=== PATIENT | male | born 1985 | race Caucasian/White ===

== ENCOUNTER → 2021-01-21 10:28 | Outpatient (BNVA) | payer BC, SELFPAY | PROVIDERS: Family Provider Family Medicine; PCP Family Medicine; Visit Provider Nurse Practitioner Family | DX: Z11.52 Encounter for screening for COVID-19 (principal); Z20.822 Contact with and (suspected) exposure to COVID-19; J06.9 Acute upper respiratory infection, unspecified | CPT/HCPCS: 87635 ==

== ENCOUNTER 2022-10-24 13:57 | Emergency (ER) | payer OTHER, SELFPAY ==
[2022-10-24 14:07] VITALS: BP 135/79; PULSE 67; RESP 16; TEMP 36.8; O2SAT 98
--- NOTE | 2022-10-24 14:58 | US_ITS ---
WS: [id number] SCROTAL ULTRASOUND EXAMINATION CLINICAL INFORMATION: testicle pain, no swelling COMPARISON: None. FINDINGS: TESTES Normal in size and echotexture, without focal lesion. Color Doppler: Normal color Doppler flow pattern. Right testes size: 4.2 cm x 3.2 cm x 2.4 cm. Left testes size: 4.3 cm x 3.2 cm x 2.3 cm. EPIDIDYMIDES Normal in size and echotexture, without focal lesion. Color Doppler: Normal color Doppler flow pattern. Right epididymis size: 1.3 cm x 1.1 cm x 1.4 cm. Left epididymitis size: 0.7 cm x 0.9 cm x 1.1 cm. HYDROCELE None. VARICOCELE None. OTHER FINDINGS None. US/US scrotum [id number] IMPRESSION: Normal scrotal ultrasound
[2022-10-24 15:11] VITALS: BP 147/70; PULSE 82; O2SAT 97
--- NOTE | 2022-10-24 15:20 | W.ED.MALEGU ---
HPI - Male Genitourinary General: Chief complaint: Urogenital-Male Stated complaint: groin pain Time Seen by Provider: 10/24/22 14:58 History of Present Illness: Patient is a 37-year-old male comes to the ED with testicle pain. Symptoms started yesterday. He is complaining of having bilateral testicular pain that he rates a 5 out of 10. He says pain is constant aching pain. Applying any pressure on testicles actually improves pain. Pain occasionally radiates up into his lower abdomen bilaterally. Denies any testicular swelling. Endorses some mild nausea. Denies any fevers, chills, abdominal pain, vomiting, dysuria, hematuria, genital lesions or penile discharge. Patient is sexually active with his but denies any history of STDs. Associated symptoms: Reports nausea; Deny dysuria, hematuria or vomiting Review of Systems Const: Denies: fever(s), chills or fatigue Eyes: Denies: change in vision or eye discomfort ENMT: Denies: throat pain, odynophagia, nasal discharge or nasal congestion Card: Denies: chest pain, palpitations, edema, swelling of feet/ankles, dyspnea on exertion or orthopnea Resp: Denies: dyspnea, productive cough or non-productive cough GI: Reports: nausea; Denies: abdominal pain, vomiting, diarrhea, constipation or hematochezia : Reports: testicular pain; Denies: flank pain, difficulty urinating, dysuria, hematuria, genital lesions, penile discharge, testicular mass or scrotal swelling Musc: Denies: neck pain, back pain or extremity swelling Skin/Breast: Denies: rash or new lesions Neuro: Denies: headache(s), numbness in extremities or weakness in extremities PFSH ED PFSH: Medical History No pertinent family history Surgical History No pertinent past surgical history Physical Exam Const: COMMON NORMALS: no acute distress, patient oriented x3 and alert GENERAL APPEARANCE: cooperative HENMT: COMMON NORMALS: normocephalic HEAD & SCALP: normocephalic MOUTH: Normal oral and palatal mucosa present THROAT: posterior oropharynx normal and uvula midline Neck/C-Spine: COMMON NORMALS: supple GENERAL: Yes normal visual inspection Resp: COMMON NORMALS: normal respiratory effort, No retractions, No use of accessory muscles and clear to auscultation bilaterally AUSCULTATION: clear to auscultation bilaterally Cardio: COMMON NORMALS: regular rate, regular rhythm, S1 normal heart sound present, S2 normal heart sound present, No gallops present (Cardio), No clicks present (Cardio), No murmurs present (Cardio) and Peripheral pulses 2+ throughout RATE: regular rate RHYTHM: regular rhythm HEART SOUNDS: S1 normal heart sound present and S2 normal heart sound present PERIPHERAL PULSES: Peripheral pulses 2+ throughout GI: COMMON NORMALS: Normal to inspection, nondistended, normoactive bowel sounds present, Soft to palpation, non-tender and no masses PALPATION: Yes Soft to palpation : COMMON NORMALS: Yes no CVA tenderness BLADDER/KIDNEY EXAM: Yes no CVA tenderness TESTES: Yes testicular lie normal, No testicular swelling and Yes testicular tenderness Testicular tenderness laterality: bilateral Back/Pelvis: COMMON NORMALS: no CVA tenderness Extremity: COMMON NORMALS: normal to inspection Neuro: COMMON NORMALS: patient oriented x3 SENSORIUM/ORIENTATION: Yes alert GAIT: Yes Normal gait present Skin: GENERAL SKIN EXAM: dry skin Course Vital Signs: Vital signs: Vital Signs Temperature 98.2 F 10/24/22 14:07 Pulse Rate 82 10/24/22 15:11 Respiratory Rate 16 10/24/22 14:07 Blood Pressure 147/70 10/24/22 15:11 Pulse Oximetry 97 10/24/22 15:11 Oxygen Delivery Me thod Room Air 10/24/22 15:11 [facility] - Male Medical Decision Making Patient is a 37-year-old male comes to the ED with testicle pain. Symptoms started yesterday. He is complaining of having bilateral testicular pain that he rates a 5 out of 10. He says pain is constant aching pain. Applying any pressure on testicles actually improves pain. Pain occasionally radiates up into his lower abdomen bilaterally. Denies any testicular swelling. Endorses some mild nausea. Denies any fevers, chills, abdominal pain, vomiting, dysuria, hematuria, genital lesions or penile discharge. Patient is sexually active with his but denies any history of STDs. Vitals stable. Patient appears nontoxic in no acute distress or pain. He has testicular tenderness bilaterally but no testicular swelling or mass noted. Rest of exam is benign. Ultrasound of scrotum shows no acute findings. Urinalysis is unremarkable. Patient was diagnosed with testicular pain and discharged home with levofloxacin to cover any potential epididymitis told to follow-up with his PCP in the next week for reevaluation. Return to ED precautions given. Patient understood and agreed with plan. Lab Data I reviewed the patient's lab results. Radiology Impressions Scrotum Ultrasound 10/24/22 14:58 IMPRESSION: Normal scrotal ultrasound Laboratory Results Urine Color Yellow (Yellow) 10/24/22 16:57 Urine Appearance Clear (CLEAR) 10/24/22 16:57 Urine pH 5 (5-7) 10/24/22 16:57 Ur Specific [place] 1.025 (1.005-1.030) 10/24/22 16:57 Urine Protein Neg (Negative) 10/24/22 16:57 Urine Glucose (UA) Norm (Normal) 10/24/22 16:57 Urine Ketones Negative (Negative) 10/24/22 16:57 Urine Blood Neg (Negative) 10/24/22 16:57 Urine Nitrate Negative (Negative) 10/24/22 16:57 Urine Bilirubin 2+ (Negative) H 10/24/22 16:57 Urine Urobilinogen 1 mg/dL (Negative) H 10/24/22 16:57 Ur Leukocyte Esterase Negative (Negative) 10/24/22 16:57 Discharge Plan Discharge Patient Disposition: Home Clinical Impression: Testicle pain Qualifiers: Laterality: bilateral Qualified Code(s): N50.811 - Right testicular pain Condition: Stable Prescriptions: New levofloxacin 500 mg tablet 500 mg PO DAILY 10 Days Qty: 10 0RF No Action Aleve 220 mg Capsule 440 mg PO Q12H PRN (Reason: Pain) Discharge Orders: Discharge ED (Routine); Ordered 10/24/22 Ordered By: Ronan Young Referrals: Te Panchal MD [Primary Care Provider] - Discharge Diet: Regular Discharge Activity: Resume usual activity Patient Instructions: Testicle Pain (ED) Activity Restrictions/Additional Instructions: Follow-up with medical provider as directed in the next 5 to 7 days for reevaluation. Take medications as prescribed. Take [id number] Tylenol, ibuprofen or Aleve to help with pain. Return to the ER or your medical provider if condition worsens. Please read and understand discharge instructions. Thank you for choosing [facility] for your healthcare needs today. Please realize this is an emergency room and that we are providing you with a medical screening exam and this may not be complete and all inclusive of all the testing and or work up that you may need to determine your ailment or severity of your illness. It is very important that you follow up as instructed or that you return to the Emergency Department should you have concerns or if your condition changes or worsens in any way. Coding Level of Care Code ED Outbound Sales Executive for Samuel Pena
[2022-10-24 17:07] LABS: Add Urine Microscopic? NO; Charge for UA Resulting for Rev
[2022-10-24 17:25] LABS: Bilirubin Urine 2+ (Negative); Blood Urine Neg (Negative); Glucose Urine UA Norm (Normal); Ketones Urine Negative (Negative); Leukocyte Esterase Urine Negative (Negative); Nitrate Urine Negative (Negative); Protein Urine Neg (Negative); Specific Gravity, Urine 1.025 (1.005-1.030); Urine Appearance Clear (CLEAR); Urine Color Yellow (Yellow); Urobilinogen Urine 1 mg/dL (Negative); pH Urine 5 (5-7)
== END 2022-10-24 17:53 | disposition home or self-care (01) ==
PROVIDERS: Emergency Provider Physician Assistant; PCP Family Medicine
DX: N50.811 Right testicular pain (principal)
CPT/HCPCS: 76870; 81003; 99284

== ENCOUNTER 2023-02-06 03:07 | Emergency (ER) | payer OTHER, SELFPAY ==
[2023-02-06 03:09] VITALS: BP 187/105; PULSE 67; RESP 18; TEMP 37.1; O2SAT 98; BMI 41.8
--- NOTE | 2023-02-06 03:16 | ED_ITS ---
HPI - Dental/Oral General: Chief complaint: Dental/Oral Stated complaint: Mouth Swollen\Pain Time Seen by Provider: 02/06/23 03:08 Source: patient Mode of arrival: ambulatory Limitations: no limitations History of Present Illness: 37-year-old male states he did have a dental pain throughout the day right upper molar states pain sharp in nature rates it a 6 out of 10 he has no difficulty swallowing. Denies any fevers denies any worsening proving factors. Associated symptoms: Denies fever(s) Review of Systems Const: Denies: fever(s), chills, body aches or change in appetite ENMT: Reports: dental pain; Denies: throat pain Card: Denies: chest pain Resp: Denies: dyspnea GI: Denies: abdominal pain, nausea, vomiting or diarrhea : Denies: dysuria Musc: Denies: neck pain or back pain Skin/Breast: Denies: rash Neuro: Denies: headache(s) PFS ED PFSH: Medical History No pertinent family history Surgical History No pertinent past surgical history Physical Exam Const: COMMON NORMALS: no acute distress, patient oriented x3 and healthy appearing HENMT: COMMON NORMALS: normocephalic and atraumatic HEAD & SCALP: normocephalic and atraumatic OTHER: Tenderness of her right upper molar some erythema no abscess or trismus Neck/C-Spine: COMMON NORMALS: full ROM and supple Chest: COMMONS NORMALS: normal inspection of the chest and normal palpation of entire chest wall Resp: COMMON NORMALS: normal respiratory effort, No retractions, No use of accessory muscles and clear to auscultation bilaterally AUSCULTATION: clear to auscultation bilaterally Cardio: COMMON NORMALS: regular rate, regular rhythm and No murmurs present (Cardio) RATE: regular rate RHYTHM: regular rhythm GI: COMMON NORMALS: Normal to inspection, nondistended, normoactive bowel sounds present, Soft to palpation, non-tender and no masses PALPATION: Yes Soft to palpation Extremity: COMMON NORMALS: normal to inspection and full ROM Neuro: COMMON NORMALS: patient oriented x3, moves all extremities and no focal motor deficits Psych: COMMON NORMALS: mental status grossly normal, Normal thought process present and cooperative THOUGHT PROCESS: Normal thought process present Skin: COMMON NORMALS: no rashes or lesions noted and no wounds GENERAL SKIN EXAM: no rashes or lesions noted Course Vital Signs: Vital signs: Vital Signs Temperature 98.8 F 02/06/23 03:09 Pulse Rate 67 02/06/23 03:09 Respiratory Rate 18 02/06/23 03:09 Blood Pressure 187/105 02/06/23 03:09 Pulse Oximetry 98 02/06/23 03:09 Oxygen Delivery Me thod Room Air 02/06/23 03:09 MDM - Dental/Oral Medical Decision Making Patient presented dental pain no abscess no trismus we will start him on antibiotics he is to follow-up with a dentist. Discharge Plan Discharge Patient Disposition: Home Clinical Impression: Toothache Condition: Stable Prescriptions: New cephalexin 500 mg capsule 500 mg PO TID 7 Days Qty: 21 0RF No Action Aleve 220 mg Capsule 440 mg PO Q12H PRN (Reason: Pain) Discharge Orders: Discharge ED (Routine); Ordered 02/06/23 Ordered By: Noreen Guido Discharge Diet: Advance as tolerated Discharge Activity: Resume usual activity Patient Instructions: Toothache (ED) Coding Level of Care Code ED Home Health Travel Pt for Samuel Pena
[2023-02-06] MEDS: HYDROcodone-acetaminophen 5-325 mg Tablet 1 TAB PO (03:23)
[2023-02-06] MEDS: cephALEXin 500 mg Capsule PO (03:23)
[2023-02-06 04:00] VITALS: BP 160/100; PULSE 70; RESP 18; O2SAT 96
--- NOTE | 2023-02-07 14:35 | DCPLANNER ---
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
== END 2023-02-06 04:01 | disposition home or self-care (01) ==
PROVIDERS: Emergency Provider Emergency Medicine
DX: K08.89 Other specified disorders of teeth and supporting structures (principal)
CPT/HCPCS: 99283

== ENCOUNTER 2023-08-27 21:38 | Emergency (ER) | payer OTHER, SELFPAY ==
[2023-08-27 21:41] VITALS: BP 192/112; PULSE 56; RESP 16; TEMP 36.7; O2SAT 99; BMI 40.0
[2023-08-27 21:54] LABS: Glucose Point of Care 86 mg/dL (70-110)
--- NOTE | 2023-08-27 21:58 | CTR_ITS ---
PROCEDURE INFORMATION: Exam: CT Head Without Contrast Exam date and time: 08/27/2023 10:25 PM Age: 38 years old Clinical indication: Numbness / parasthesia; Right; Additional info: Headache and right side numb TECHNIQUE: Imaging protocol: Computed tomography of the head without contrast. Radiation optimization: All CT scans at this facility use at least one of these dose optimization techniques: automated exposure control; mA and/or kV adjustment per patient size (includes targeted exams where dose is matched to clinical indication); or iterative reconstruction. COMPARISON: CT head wo con* [id number] 12/14/2017 1:33 PM RADIATION DOSE METRICS: Total DLP (mGy-cm): 1152.78 FINDINGS: Brain: Normal. No hemorrhage. Unremarkable white matter. No mass effect. Cerebral ventricles: No ventriculomegaly. Paranasal sinuses: Visualized sinuses are unremarkable. No fluid levels. Mastoid air cells: Visualized mastoid air cells are well aerated. Bones/joints: Unremarkable. No acute fracture. Soft tissues: Unremarkable. CT/CT head wo con* [id number] IMPRESSION: No acute intracranial abnormality.
--- NOTE | 2023-08-27 21:59 | ED_ITS ---
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 He states he is recently started working nights and normally works days and became concerned and drove himself home and called his and they came to the emergency department to be evaluated. Upon arrival he states he does have a generalized headache that is a throbbing headache. He denies nausea vomiting dizziness or lightheaded feeling. Review of Systems 2 General: Reports: 10 or more systems reviewed and unremarkable except in HPI and below ENMT: Reports: ear or mastoid pain Neuro: Reports: headache(s) [facility] ED 2 PFSH: Medical History No pertinent family history Surgical History No pertinent past surgical history Physical Exam 2 Narrative: Constitutional: the patient appears well nourished and with normal development. Vital signs reviewed as documented. HENMT: Normocephalic, atraumatic. External ears normal appearance without drainage. Nose without drainage, normal appearance. Mucus membranes moist. Neck is supple, No jugular venous distension, trachea is midline, no appreciable carotid bruits. No lymphadenopathy. No meningeal signs. Flexion, extension and lateral rotation is without pain. Eyes: Pupils are equal, round, reactive to light and accommodation. No scleral icterus. Extra-ocular movement are intact. Thorax is symmetrical and with equal rise and fall with respirations. Resp: Lungs are clear to auscultation. No wheezes, rales, crackles or ronchi at present. Cardio: Regular rate and rhythm. Positive S1, S2. No appreciable murmurs, rubs or gallops. GI: Abdominal exam reveals normal bowel sounds to all quadrants. No organomegaly. No obvious palpable masses noted. Soft, non-tender to palpation. Extremity: Extremities are non-edematous and both femoral and pedal pulses are 2+ and equal bilaterally. Moves all extremities well, sensation in all extremities. Neuro: Alert and oriented x4, person, place, time and situation. Cranial nerves II through XII are grossly intact, there is no focal neurological deficits that I can appreciate at present. Motor strength in the upper and lower extremities are equal and bilateral 5/5. Psych: Cooperative, calm, normal thought process, appropriate judgment. Skin: No lesions, rashes. No gross abnormalities noted. Back: Symmetrical, no obvious deformity, No CVA tenderness Course 2 Vital Signs: Vital signs: Vital Signs Temperature 98.1 F 08/27/23 21:41 Pulse Rate 56 L 08/28/23 02:21 Respiratory Rate 16 08/28/23 02:21 Blood Pressure 149/77 08/28/23 02:21 Pulse Oximetry 95 08/28/23 02:21 Oxygen Delivery Me thod Room Air 08/27/23 23:33 MDM - Altered Mental Status Medical Decision Making Physical exam completed and documented, I will obtain POC glucose check and treat accordingly. I will a CT scan of the head without contrast to evaluate for intracranial hemorrhage and if indicated a CTA scan of the head and neck for evaluation of acute ischemic vessel occlusion. I have reviewed previous and pertinent medical records for assist in obtaining beneficial medical information to improved the care and treatment of the patient. Medical Records I reviewed the patient's medical records. Lab Data I reviewed the patient's lab results. 08/27/23 21:50 08/27/23 21:[address] 08/27/23 21:58 IMPRESSION: No acute intracranial abnormality. Laboratory Results WBC 9.80 10^3/uL (3.29-11.43) 08/27/23 21:50 RBC 5.56 10^6/uL (3.85-5.65) 08/27/23 21:50 Hgb 15.90 g/dL (11.27-16.99) 08/27/23 21:50 Hct 48.3 % (37-53) 08/27/23 21:50 MCV 86.9 fl (82-101) 08/27/23 21:50 MCH 28.6 pg (27-33) 08/27/23 21:50 MCHC 32.9 g/dL (30-55) 08/27/23 21:50 RDW 12.5 % (12.1-15.1) 08/27/23 21:50 Plt Count 231 10^3/cmm (157-399) 08/27/23 21:50 MPV 11.3 fL (7.4-10.4) H 08/27/23 21:50 Neut % (Auto) 62.7 % 08/27/23 21:50 Lymph % (Auto) 26.1 % 08/27/23 21:50 [place] % (Auto) 6.0 % 08/27/23 21:50 Eos % (Auto) 4.2 % 08/27/23 21:50 Baso % (Auto) 0.8 % 08/27/23 21:50 Neut # (Auto) 6.14 10^3/uL (1.8-7.7) 08/27/23 21:50 Lymph # (Auto) 2.6 10^3/uL (0.8-4.8) 08/27/23 21:50 [place] # (Auto) 0.6 10^3/uL (0.2-0.9) 08/27/23 21:50 Eos # (Auto) 0.4 10^3/uL (0.0-0.8) 08/27/23 21:50 Baso # (Auto) 0.1 10^3/uL (0.0-0.1) 08/27/23 21:50 Nucleated RBC % (auto) 0 % 08/27/23 21:50 Nucleated RBCs # 0.0 /100WBC 08/27/23 21:50 Sodium 137 mmol/L (136-145) 08/27/23 21:50 Potassium 3.8 mmol/L (3.5-5.1) 08/27/23 21:50 Chloride 99 mmol/L (98-107) 08/27/23 21:50 Carbon Dioxide 28 mmol/L (22-29) 08/27/23 21:50 Anion Gap 13.8 (5-19) 08/27/23 21:50 BUN 15 mg/dL (6-20) 08/27/23 21:50 Creatinine 1.0 mg/dL (0.7-1.2) 08/27/23 21:50 GFR Calculation 83.6 mL/min (90-130) L 08/27/23 21:50 Glucose 92 mg/dL (65-115) 08/27/23 21:50 POC Glucose 86 mg/dL (70-110) 08/27/23 21:51 Calculated Osmolality 284 mOsm/kg (285-295) L 08/27/23 21:50 Calcium 9.3 mg/dL (8.5-10.5) 08/27/23 21:50 Total Bilirubin 0.4 mg/dL (0.15-1.2) 08/27/23 21:50 AST 22 U/L (0-40) 08/27/23 21:50 ALT 20 U/L (0-41) 08/27/23 21:50 Alkaline Phosphatase 65 U/L (40-130) 08/27/23 21:50 Total Protein 8.2 g/dL (6.6-8.7) 08/27/23 21:50 Albumin 4.8 g/dL (3.5-5.2) 08/27/23 21:50 Globulin 3.4 g/dL (1.3-4.6) 08/27/23 21:50 Urine Color Yellow (Yellow) 08/27/23 22:12 Urine Appearance Clear (CLEAR) 08/27/23 22:12 Urine pH 5 (5-7) 08/27/23 22:12 Ur Specific [place] 1.025 (1.005-1.030) 08/27/23 22:12 Urine Protein Trace (Negative) 08/27/23 22:12 Urine Glucose (UA) Norm (Normal) 08/27/23 22:12 Urine Ketones Negative (Negative) 08/27/23 22:12 Urine Blood Neg (Negative) 08/27/23 22:12 Urine Nitrate Negative (Negative) 08/27/23 22:12 Urine Bilirubin Neg (Negative) 08/27/23 22:12 Urine Urobilinogen Neg mg/dL (Negative) 08/27/23 22:12 Ur Leukocyte Esterase Negative (Negative) 08/27/23 22:12 Urine RBC None /hpf (0-2) 08/27/23 22:12 Urine WBC None /hpf (0-5) 08/27/23 22:12 Ur Squamous Epith Cells None /hpf (0-5) 08/27/23 22:12 Amorphous Sediment Not Reportable 08/27/23 22:12 Urine Bacteria Trace /hpf (NONE) 02/12/24 22:12 Urine Mucus 2+ /hpf 08/27/23 22:12 Urine Opiates Screen Negative ng/mL (Negative) 08/27/23 22:12 Ur Barbiturates Screen Negative ng/mL (Negative) 08/27/23 22:12 Ur Phencyclidine Scrn Negative ng/mL (Negative) 08/27/23 22:12 Ur Amphetamines Screen Negative ng/mL (Negative) 08/27/23 22:12 U Benzodiazepines Scrn Negative ng/mL (Negative) 08/27/23 22:12 Urine Cocaine Screen Negative ng/mL (Negative) 08/27/23 22:12 U Marijuana (THC) Screen Negative ng/mL (Negative) 08/27/23 22:12 All radiology interpretation(s) finalized by discharge Discharge Plan Discharge Patient Disposition: Home Clinical Impression: Vasovagal near-syncope Condition: Stable Prescriptions: No Action Aleve 220 mg Capsule 440 mg PO Q12H PRN (Reason: Pain) Discharge Orders: Discharge ED (Routine); Ordered 08/28/23 Ordered By: Irving Ferrera Referrals: Te Panchal MD [Primary Care Provider] - Discharge Diet: Low Salt Discharge Activity: Resume usual activity Patient Instructions: Altered Mental Status (ED), Opioid Safety, Pain Management Activity Restrictions/Additional Instructions: Activity Restrictions/Additional Instructions: Thank you for choosing [facility] for your healthcare needs today. Please realize that you were seen in the Emergency Department and that we are providing you with an emergency medical screening exam and this may not be a complete and all inclusive of all the testing and or medical work-up that you may need to determine your ailment or severity of your illness. It is very important that you follow-up as instructed with your Primary care provider or Specialist for additional evaluation and to discuss your medical treatment plan. Coding Level of Care Code ED Hop Worker for Samuel Pena
[2023-08-27 22:04] LABS: Basophils # 0.1 10^3/uL (0.0-0.1); Basophils % 0.8 %; Eosinophils # 0.4 10^3/uL (0.0-0.8); Eosinophils % 4.2 %; Hematocrit 48.3 % (37-53); Lymphocytes # 2.6 10^3/uL (0.8-4.8); Lymphocytes % 26.1 %; Mean Corpuscular HGB Conc 32.9 g/dL (30-55); Mean Corpuscular Hemoglobin 28.6 pg (27-33); Mean Corpuscular Volume 86.9 fl (82-101); Mean Platelet Volume 11.3 fL (7.4-10.4); Monocytes # 0.6 10^3/uL (0.2-0.9); Neutrophils # 6.14 10^3/uL (1.8-7.7); Neutrophils % 62.7 %; Nucleated Red Blood Cells % 0 %; Platelet Count 231 10^3/cmm (157-399); Red Blood Count 5.56 10^6/uL (3.85-5.65); Red Cell Distribution Width 12.5 % (12.1-15.1)
[2023-08-27 22:17] LABS: Alanine Aminotransferase 20 U/L (0-41); Albumin Level 4.8 g/dL (3.5-5.2); Alkaline Phosphatase 65 U/L (40-130); Anion Gap 13.8 (5-19); Blood Urea Nitrogen 15 mg/dL (6-20); Calcium 9.3 mg/dL (8.5-10.5); Carbon Dioxide 28 mmol/L (22-29); Chloride 99 mmol/L (98-107); Globulin 3.4 g/dL (1.3-4.6); Glomerular Filtration Rate 83.6 mL/min (90-130); Glucose 92 mg/dL (65-115); Osmolality Calculated 284 mOsm/kg (285-295); Potassium 3.8 mmol/L (3.5-5.1); Sodium 137 mmol/L (136-145); Total Bilirubin 0.4 mg/dL (0.15-1.2); Total Protein 8.2 g/dL (6.6-8.7)
[2023-08-27 22:26] LABS: Aspartate Amino Transferase 22 U/L (0-40)
[2023-08-27 22:34] LABS: Add Urine Culture? No; Add Urine Microscopic? YES; Bacteria Urine TRACE /hpf; Bilirubin Urine Neg (Negative); Blood Urine Neg (Negative); Glucose Urine UA Norm (Normal); Ketones Urine Negative (Negative); Leukocyte Esterase Urine Negative (Negative); Mucus Urine 2+ /hpf; Nitrate Urine Negative (Negative); Protein Urine Trace (Negative); Specific Gravity, Urine 1.025 (1.005-1.030); Urine Appearance Clear (CLEAR); Urine Color Yellow (Yellow); Urobilinogen Urine Neg (Negative); pH Urine 5 (5-7)
[2023-08-27 22:38] LABS: Amphetamines Screen Urine Negative (Negative); Barbiturates Screen Urine Negative (Negative); Benzodiazepines Screen Urine Negative (Negative); Cocaine Screen Urine Negative (Negative); PCP Screen Urine Negative (Negative); THC Screen Urine Negative (Negative)
[2023-08-27 22:49] LABS: Opiate Screen Urine Negative (Negative)
[2023-08-27 23:08] VITALS: BP 167/108; PULSE 53; O2SAT 96
[2023-08-27 23:33] VITALS: BP 167/106; PULSE 50; RESP 17; O2SAT 99
[2023-08-28] VITALS: BP 164/87; PULSE 51; RESP 14; O2SAT 96
[2023-08-28 00:30] VITALS: BP 162/76; PULSE 46; O2SAT 96
[2023-08-28 01:00] VITALS: BP 155/92; PULSE 62; O2SAT 98
[2023-08-28] MEDS: acetaminophen 500 mg Tablet 1000 MG PO (01:34)
[2023-08-28 02:21] VITALS: BP 149/77; PULSE 56; RESP 16; O2SAT 95
== END 2023-08-28 02:23 | disposition home or self-care (01) ==
PROVIDERS: Emergency Provider Internal Medicine; PCP Family Medicine
DX: R55 Syncope and collapse (principal)
CPT/HCPCS: 36416; 70450; 80053; 80306; 81001; 82962; 85025; 99284

== ENCOUNTER → 2024-01-01 06:51 | Outpatient (BNVA) | payer OTHER, SELFPAY | PROVIDERS: PCP Family Medicine; Referring Provider Family Medicine; Visit Provider Student in an Organized Health Care Education/Training Program | DX: G56.03 Carpal tunnel syndrome, bilateral upper limbs (principal) | CPT/HCPCS: 73110 ==

== ENCOUNTER 2024-01-24 08:29 | Day surgery (SDC) | payer OTHER, SELFPAY ==
[2024-01-24] VITALS (11 sets, daily range): BP systolic 119–159; BP diastolic 44–90; PULSE 50–70; RESP 12–18; TEMP 36.4–37.1; O2SAT 94–99; BMI 42.5
[2024-01-24] MEDS: ketorolac 30 mg/mL INJ IVP (09:02)
[2024-01-24] MEDS: sodium chloride 0.9% 1,000 ML 30 ML IV (09:02)
[2024-01-24] MEDS: scopolamine 1.5 Patch 1 PATCH TRANSDERMA (09:02)
[2024-01-24] MEDS: acetaminophen 1,000 MG/100 ML PIGGYBACK 400 MG IV (09:02)
--- NOTE | 2024-01-24 09:54 | ANES.PREANE2 ---
Pre-Anesthetic Assessment Height/Weight: Height 1.8 m Weight 138.346 kg Temp Pulse Resp BP Pulse Ox O2 Del Method 98.2 F 67 18 146/90 98 Room Air 01/24/24 08:46 01/24/24 08:46 01/24/24 08:46 01/24/24 08:46 01/24/24 08:46 01/24/24 08:48 Operation Date: 01/24/24 10:10 Proposed Procedures p Carpal Tunnel Release(Right) - Cristian Gila, Last intake: Intake Last Liquid Date 01/23/24 Last Liquid Time 22:00 Last Solid Date 01/23/24 Last Solid Time 22:00 Social No tobacco Exam alert, oriented x 3, clear to auscultation bilaterally and regular rate & rhythm Airway Submandibular: within normal limits Cervical ROM: within normal limits Mallampati: Class I Pulmonary None reported CV/HEM Hypertension None reported Hepatic None reported GI None reported Metabolic Morbid Obesity and None reported Musc/skel None reported Neuropsych Seizure none x 7 years Anesthetic Plan ASA status: 3 Anesthesia: MAC Risk of > 500 ml blood loss (7ml/kg in children): No Medications/Allergies Home Medications Medication Instructions Recorded Confirmed Last Taken Type hydrochlorothiazide 25 mg tablet 25 mg PO DAILY #30 tabs 08/29/23 01/24/24 11/13/23 Rx trazodone 100 mg tablet 100 mg PO .QHS #30 tabs 08/29/23 01/24/24 01/10/23 Rx Allergies Allergy/AdvReac Type Severity Reaction Status Date / Time Sulfa (Sulfonamide Allergy unknown Verified 01/23/24 11:07 Antibiotics) Current Medications Generic Name Dose Route Start Last Admin Trade Name Freq PRN Reason Stop Dose Admin Sodium Chloride 1,000 mls @ 30 mls/hr 01/24/24 08:45 01/24/24 09:02 Sodium Chloride 0.9% IV 01/25/24 08:44 30 mls/hr .Q24H NATALIE Administration PFSH Anesthesia Medical History Hypertension Insomnia No pertinent family history Surgical History No pertinent past surgical history Social History (Updated 01/01/24 @ 07:02 by Loyda Kapadia LPN) Smoking and tobacco/nicotine status: never used tobacco/nicotine Alcohol intake: current Alcohol intake frequency: few times a month Data Anesthesia Cardiac Studies: No Data to Display
--- NOTE | 2024-01-24 09:57 | W.PM.OPSUD ---
Surgery/Procedure H&P Update DATE OF PROCEDURE: January 24, 2024 DATE H&P PERFORMED: 12/31/23 H&P UPDATE INFORMATION: I have reviewed H&P completed within last 30 days, I have examined patient prior to procedure and No changes to prior documentation PREOP DIAGNOSIS: Right carpal tunnel syndrome PRIMARY INDICATION FOR PROCEDURE: Right carpal tunnel syndrome PLANNED PROCEDURE: Operation Date: 01/24/24 10:10 Proposed Procedures p Carpal Tunnel Release(Right) - Cristian Young DO
[2024-01-24] MEDS: ceFAZolin 3,000 MG in sodium chloride 0.9% (plus) 100 ML 200 MG IV (10:11)
[2024-01-24] MEDS: ROPivacaine 0.5% SDV 30 mL 150 MG INJECTION (10:37)
[2024-01-24] MEDS: lidocaine-epi 1% 20 mL INJ INJECTION (10:37)
--- NOTE | 2024-01-24 10:52 | P.BOP_ITS ---
Date of Procedure: 01/24/2024 Surgeon: Cristian Young DO [employer] Manager(s): None Procedure(s) performed: Right carpal tunnel release Findings of the procedure(s): Patient found to have right carpal tunnel syndrome underwent procedure as planned without issues or complications Estimated blood loss: 1 mL Specimen(s) removed: None Post-operative diagnosis: Right carpal tunnel syndrome
--- NOTE | 2024-01-24 10:52 | P.OP_ITS ---
Operative Report Date of procedure: January 24, 2024 Surgeon: Cristian Young DO Procedure: PreopDx Right carpal tunnel syndrome: Post-op diagnosis: Same Procedure done: 1.?Right carpal tunnel?release Surgeon: Cristian Young DO Anesthesia: MAC (Local) Estimated blood loss: [1?]mL Tourniquet time [ 7]minutes IV fluids: See anesthesia?record Complications: None Findings: See operative?report narrative Condition: stable Disposition: same day Brief History: Patient is a pleasant [?38 ]year-old [Male ] with?right carpal tunnel syndrome.? Patient has been worked up in the outpatient setting findings and physical examination consistent with this.? Patient nerve conduction studies consistent with carpal tunnel syndrome.? We detailed out patient's?risk benefits complication alternatives with surgical and nonsurgical treatment options. Through shared decision making, patient agrees to proceed with surgical intervention of the right carpal tunnel?release .? Patient understands and agrees with current plan.? All questions answered.? Patient elects to proceed with surgical intervention. Procedure: Patient seen and evaluated in the preoperative holding area.? Consent was?reviewed and signed with patient.? Correct extremity was marked.? Patient was seen evaluated by the anesthesia department once cleared for surgery was brought back to the operative suite.? Patient was kept on [facility] in supine position all bony prominences were well-padded patient properly secured to the bed.??Right upper extremity was then placed onto an armboard.? A nonsterile tourniquet was applied to the?RIght upper arm.? Patient underwent anesthesia per the anesthesia department.? Patient's?Right upper extremity was then prepped and draped in standard orthopedic fashion.? Final timeout performed.? Patient?received appropriate preoperative antibiotics. Under sterile aseptic technique patient?received local anesthesia over the preplanned carpal tunnel incision site. Esmarch was used to exsanguinate the?Right upper extremity and tourniquet was insufflated to 250 mmHg. A standard mini open?Right carpal tunnel incision was made.? Starting distally at Dwyer's cardinal line in line with the fourth?ray extending proximally distal to the wrist crease centered over the carpal tunnel.? Sharp scalpel incision was made through skin and subcutaneous tissue.? Self- retaining?retractor was placed and the palmar fascia was identified.? This was then split longitudinally and direct visualization of the transverse carpal ligament was then made.? I then utilizing scalpel feathered through the transverse carpal ligament until I entered the floor of the transverse carpal tunnel ligament into the carpal tunnel.? Next I switched to dissection scissors and completed my?release of the transverse carpal ligament distally with care to protect the?recurrent motor branch.? I completely?released into the palmar fat and until no entrapment was noted distally.? Care was made to protect the superficial palmar arch during my distal dissection.?? Next I utilized a nasal speculum placed on top of the transverse carpal ligament and utilize this to?retract the subcutaneous fat and tissue and under direct loupe magnification was able to identify the transverse carpal ligament.? Next I then placed a [place] underneath the transverse carpal tunnel ligament to protect the contents of the carpal tunnel and subsequently utilizing dissection scissors under loupe magnification completely?released the transverse carpal ligament proximally into the median antebrachial fascia.? Care was made to protect the palmar cutaneous branch by keeping my scissors curved ulnarly.? Once completely?released, I then placed my [place] and had appropriate decompression of the carpal tunnel proximally as well as distally.? I then inspected the contents of the carpal tunnel which showed an hourglass shape of the median nerve showing its compression.? No masses were noted.? Tendons appeared healthy.? Wound was then thoroughly irrigated.? Tourniquet deflated.? Hemostasis satisfactory with bipolar electrocautery.? I then closed the incision with interrupted nylon stitches.? Xeroform 4 x 4's and a bulky soft dressing was applied.? Patient was then awakened from anesthesia and taken to PACU in stable condition.? Patient tolerated procedure without complications. Disposition: Patient taken to PACU in stable condition?recovering well.? Dressing clean dry and intact.? Patient will?receive appropriate discharge instructions as well as pain medication postoperatively.? Patient to follow-up with me in the office in 2 weeks.? They understand they may be weightbearing as tolerated to the?right hand.? Patient should keep incision clean dry and intact.? Patient understands if any questions or concerns may contact the office.
--- NOTE | 2024-01-24 15:46 | ANE.PACU2 ---
Inpatient post-anesthesia follow up: Airway intact: Yes Vital signs: Temperature 98.7 F Pulse Rate 50 Respiratory Rate 16 Blood Pressure 142/72 Pulse Oximetry 99 Oxygen Delivery Me thod Room Air Oxygen Flow Rate Fraction of Inspir ed Oxygen Hydration adequate: Yes Nausea and vomiting: No Pain level: controlled Mental status: Baseline Additional Comments: no apparent anesthetic complications noted
== END 2024-01-24 13:20 | disposition home or self-care (01) ==
PROVIDERS: PCP Family Medicine; Visit Provider Student in an Organized Health Care Education/Training Program
PROC: (CPT 64721; principal; 2024-01-24 10:10)
DX: G56.01 Carpal tunnel syndrome, right upper limb (principal); E66.01 Morbid (severe) obesity due to excess calories; Z68.41 Body mass index [BMI] 40.0-44.9, adult; I10 Essential (primary) hypertension
CPT/HCPCS: 64721; J0131; J0690; J1885; J2250; J2704; J2795; J3010; J7030

== ENCOUNTER 2024-02-21 06:08 | Day surgery (SDC) | payer OTHER, SELFPAY ==
[2024-02-21] VITALS (7 sets, daily range): BP systolic 129–140; BP diastolic 74–87; PULSE 56–68; RESP 16–20; TEMP 36.3–36.5; O2SAT 96–100; BMI 44.6
[2024-02-21] MEDS: sodium chloride 0.9% 1,000 ML 30 ML IV (06:39)
--- NOTE | 2024-02-21 06:40 | ANES.PREANE2 ---
Pre-Anesthetic Assessment Height/Weight: Height 1.8 m Weight 145.15 kg O2 Del Method Room Air 02/21/24 06:25 Operation Date: 02/21/24 07:00 Proposed Procedures p Carpal Tunnel Release(Left) - Cristian Young DO Familial anesthetic complications: None Was Beta Madhu taken within 24 hours: N/A Was Clonidine taken within 24 hours: N/A Last intake: Intake Last Liquid Date 02/20/24 Last Liquid Time 19:30 Last Solid Date 02/20/24 Last Solid Time 19:30 Social No alcohol and No tobacco Exam alert, oriented x 3, clear to auscultation bilaterally and regular rate & rhythm Airway Mallampati: Class IV Comments: Comments: full arzate CV/HEM Hypertension Metabolic Morbid Obesity Neuropsych Seizure (remote, 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) Anesthetic Plan ASA status: 2 Anesthesia: MAC Risk of > 500 ml blood loss (7ml/kg in children): No Medications/Allergies Home Medications Medication Instructions Recorded Confirmed Last Taken Type hydrochlorothiazide 25 mg tablet 25 mg PO DAILY #30 tabs 08/29/23 02/21/24 02/20/24 Rx mupirocin 2 % topical ointment 1 applic topical BID #15 grams 02/08/24 02/20/24 Unknown Rx clindamycin HCl 150 mg capsule 450 mg (3 x 150 mg) PO TID 5 days 02/15/24 02/21/24 02/20/24 Rx #45 caps Allergies Allergy/AdvReac Type Severity Reaction Status Date / Time Sulfa (Sulfonamide Allergy unknown Verified 02/20/24 09:14 Antibiotics) [facility] Anesthesia Medical History Hypertension Insomnia No pertinent family history Surgical History No pertinent past surgical history Social History Smoking and tobacco/nicotine status: never used tobacco/nicotine Alcohol intake: current Alcohol intake frequency: few times a month Data Anesthesia Cardiac Studies: No Data to Display
[2024-02-21] MEDS: acetaminophen 1,000 MG/100 ML PIGGYBACK 400 MG IV (06:56)
[2024-02-21] MEDS: ketorolac 30 mg/mL INJ IVP (06:56)
--- NOTE | 2024-02-21 06:56 | W.PM.OPSUD ---
Surgery/Procedure H&P Update DATE OF PROCEDURE: February 21, 2024 DATE H&P PERFORMED: 02/06/24 H&P UPDATE INFORMATION: I have reviewed H&P completed within last 30 days, I have examined patient prior to procedure and No changes to prior documentation CHANGES TO PREVIOUS DOCUMENTATION: Patient on the right side had a little bit of wound dehiscence and possible superficial infection this was treated by his primary provider over the past week and a half he is about to complete his antibiotics this is done very well today there is no erythema or redness around this just has a simple scab and healing from the inside out no signs of infection at this time. Patient's had good relief of his median nerve paresthesias and would like to proceed with left carpal tunnel release today. PREOP DIAGNOSIS: Left Carpal Tunnel syndrome PRIMARY INDICATION FOR PROCEDURE: Left carpal tunnel syndrome PLANNED PROCEDURE: Operation Date: 02/21/24 07:00 Proposed Procedures p Carpal Tunnel Release(Left) - Cristian Young DO
[2024-02-21] MEDS: ceFAZolin 3,000 MG in sodium chloride 0.9% (plus) 100 ML 200 MG IV (07:02)
[2024-02-21] MEDS: lidocaine-epi 1% 20 mL INJ INJECTION (07:27)
[2024-02-21] MEDS: ROPivacaine 0.5% SDV 30 mL 25 MG INJECTION (07:28)
--- NOTE | 2024-02-21 07:38 | P.BOP_ITS ---
Date of Procedure: [02/21/2024] Surgeon: Cristian Young DO Elementary Supervisor(s): None Procedure(s) performed: Left carpal tunnel release Findings of the procedure(s): Left carpal tunnel syndrome underwent procedure as planned without issues or complications Estimated blood loss: 2 mL Specimen(s) removed: None Post-operative diagnosis: Left carpal tunnel syndrome
--- NOTE | 2024-02-21 07:39 | P.OP_ITS ---
Operative Report Date of procedure: February 21, 2024 Surgeon: Cristian Young DO Procedure: Preop Diagnosis: Left Carpal Tunnel Syndrome Post-op diagnosis: Same Procedure done: 1. Left carpal tunnel release Surgeon: Cristian Young DO Anesthesia: MAC (Local) Estimated blood loss: 2 mL mL Tourniquet time 10 minutes IV fluids: See anesthesia record Complications: None Findings: See operative report narrative Condition: stable Disposition: same day Brief History: Patient is a pleasant 38 year-old male with left carpal tunnel syndrome. Patient has been worked up in the outpatient setting findings and physical examination consistent with this. Patient nerve conduction studies consistent with carpal tunnel syndrome. We detailed out patient's risk benefits complication alternatives with surgical and nonsurgical treatment options. Through shared decision making, patient agrees to proceed with surgical intervention of the left carpal tunnel release . Patient understands and agrees with current plan. All questions answered. Patient elects to proceed with surgical intervention with carpal tunnel release. Procedure: Patient seen and evaluated in the preoperative holding area. Consent was reviewed and signed with patient. Correct extremity was marked. Patient was seen evaluated by the anesthesia department once cleared for surgery was brought back to the operative suite. Patient was kept on [facility] in supine position all bony prominences were well-padded patient properly secured to the bed. Left upper extremity was then placed onto an armboard. A nonsterile tourniquet was applied to the left upper arm. Patient underwent anesthesia per the anesthesia department. Patient's left upper extremity was then prepped and draped in standard orthopedic fashion. Final timeout performed. Patient receiv ed appropriate preoperative antibiotics. Under sterile aseptic technique patient received local anesthesia over the preplanned carpal tunnel incision site. Esmarch was used to exsanguinate the left upper extremity and tourniquet was insufflated to 250 mmHg. A standard mini open left carpal tunnel incision was made. Starting distally at Dwyer's cardinal line in line with the fourth ray extending proximally distal to the wrist crease centered over the carpal tunnel. Sharp scalpel incision was made through skin and subcutaneous tissue. Self-retaining retractor was placed and the palmar fascia was identified. This was then split longitudinally and direct visualization of the transverse carpal ligament was then made. I then utilizing scalpel feathered through the transverse carpal ligament until I entered the floor of the transverse carpal tunnel ligament into the carpal tunnel. Next I switched to dissection scissors and completed my release of the transverse carpal ligament distally with care to protect the recurrent motor branch. I completely released into the palmar fat and until no entrapment was noted distally. Care was made to protect the superficial palmar arch during my distal dissection. Next, nasal speculum placed proximally for retraction of soft tissue on top of the Transverse carpal ligament. Next the contents of the carpal tunnel where protected and and subsequently utilizing dissection scissors under loupe magnification completely released the transverse carpal ligament proximally into the antebrachial fascia. Care was made to protect the palmar cutaneous branch by keeping my scissors curved ulnarly. Once completely released, I then placed my [place] and had appropriate decompression of the carpal tunnel proximally as well as distally. I then inspected the contents of the carpal tunnel which showed an hourglass shape of the median nerve showing its compression. No masses were noted. Tendons appeared healthy. Wound was then thoroughly irri gated. Tourniquet deflated. Hemostasis satisfactory with bipolar electrocautery. I then closed the incision with interrupted nylon stitches. Xeroform 4 x 4's and a bulky soft dressing was applied to the left upper extremity. Patient was then awakened from anesthesia and taken to PACU in stable condition. Patient tolerated procedure without complications. Disposition: Patient taken to PACU in stable condition recovering well. Dressing clean dry and intact. Patient will receive appropriate discharge instructions as well as pain medication postoperatively. Patient to follow-up with me in the office in 2 weeks. They understand they may be weightbearing as tolerated to the left hand. Patient should keep incision clean dry and intact. Patient understands if any questions or concerns may contact the office.
--- NOTE | 2024-02-21 08:50 | ANE.PACU2 ---
Inpatient post-anesthesia follow up: Airway intact: Yes Vital signs: Temperature 97.7 F Pulse Rate 56 Respiratory Rate 18 Blood Pressure 138/87 Pulse Oximetry 98 Oxygen Delivery Me thod Room Air Oxygen Flow Rate 6 Fraction of Inspir ed Oxygen Hydration adequate: Yes Nausea and vomiting: No Pain level: 1 Mental status: Baseline
[2024-02-21] MEDS: scopolamine 1.5 Patch 1 PATCH TRANSDERMA (09:06)
== END 2024-02-21 08:50 | disposition home or self-care (01) ==
PROVIDERS: PCP Family Medicine; Visit Provider Student in an Organized Health Care Education/Training Program
PROC: (CPT 64721; principal; 2024-02-21 07:00)
DX: G56.02 Carpal tunnel syndrome, left upper limb (principal); I10 Essential (primary) hypertension; E66.01 Morbid (severe) obesity due to excess calories; Z68.41 Body mass index [BMI] 40.0-44.9, adult
CPT/HCPCS: 64721; J0131; J0690; J1885; J2250; J2704; J2795; J7030

== ENCOUNTER 2024-03-04 11:39 | Outpatient (CLI) | payer OTHER, SELFPAY | END 2024-03-04 11:40 | disposition home or self-care (01) | LOC: SPT 11:40 | PROVIDERS: PCP Family Medicine; Visit Provider Physician Assistant | DX: Z47.89 Encounter for other orthopedic aftercare (principal); Z98.890 Other specified postprocedural states | CPT/HCPCS: 97760; L3908 ==

== ENCOUNTER → 2024-09-09 14:24 | Outpatient (BNVA) | payer OTHER, SELFPAY | PROVIDERS: PCP Family Medicine; Visit Provider Emergency Medicine | DX: B34.9 Viral infection, unspecified (principal) | CPT/HCPCS: 87400 ==

== ENCOUNTER 2024-10-13 17:43 | Emergency (ER) | payer OTHER, SELFPAY ==
[2024-10-13 17:58] VITALS: BP 153/132; PULSE 76; RESP 18; TEMP 36.8; O2SAT 93; BMI 41.3
--- NOTE | 2024-10-13 18:04 | XRR_ITS ---
PROCEDURE INFORMATION: Exam: XR Chest Exam date and time: 10/13/2024 6:10 PM Age: 39 years old Clinical indication: Pain; Chest pressure; Additional info: Chest pain TECHNIQUE: Imaging protocol: Radiologic exam of the chest. Views: 1 view. COMPARISON: CR XR chest 1V [id number] 03/27/2018 11:35 AM FINDINGS: Lungs: Unremarkable. No consolidation. Pleural spaces: Unremarkable. No pleural effusion. No pneumothorax. Heart/Mediastinum: Unremarkable. No cardiomegaly. Bones/joints: Unremarkable. XR/XR chest 1V portable [id number] IMPRESSION: No acute findings.
--- NOTE | 2024-10-13 18:04 | ECG_ITS ---
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
--- NOTE | 2024-10-13 18:05 | ED_ITS ---
HPI - Chest Pain 2 General: Chief Complaint: Chest Pain Stated Complaint: Chest Pains Time Seen by Provider: 10/13/24 18:04 History of Present Illness: 39-year-old man with a history of obesit y and hypertension who presents emergency room with epigastric pain. This been going on for about 3 days now. He says it is worse whenever he eats or drinks anything. Has been keeping him up at night. He tried some zauk-egz-htxmqny acid reducers and that did not help. He says it hurts when he breathes out but not when he breathes in. He describes it as a cramping type pain. No nausea or vomiting. No fevers. No abdominal pain. Related Data Previous Rx's ?Medication ?Instructions ?Recorded hydrochlorothiazide 25 mg tablet 25 mg PO DAILY #30 ta bs 08/29/23 left velcro wrist brace #1 ea 03/04/24 albuterol sulfate 90 mcg/actuation 2 puff inhalation Q 6H PRN 09/09/24 aerosol inhaler shortness of breath or wheez ing #8.5 grams xdvnifizoohymma-rrupbalngbgprab-EY 7.5 ml PO Q6H PRN c old symptoms 09/09/24 2 mg-30 mg-10 mg/5 mL oral syrup #160 mL (Bromfed DM) ondansetron 4 mg disintegrating 4 mg PO Q6H PRN nausea and 09/09/24 tablet vomiting #12 tabs oseltamivir 75 mg capsule (Tamiflu) 75 mg PO BID 5 day s #10 caps 09/09/24 omeprazole 40 mg capsule,delayed 40 mg PO DAILY #30 ca ps 10/13/24 release sucralfate 1 gram tablet (Carafate) 1 g PO TID 4 weeks #84 tabs 10/13/24 Allergies Allergy/AdvReac Type Severity Reaction Status Date / Time Sulfa (Sulfonamide Allergy unknown Verified 10/13/24 18:01 Antibiotics) Review of Systems 2 Narrative: Constitutional symptoms: Negative except as documented in HPI. Skin symptoms: Negative except as documented in HPI. Eye symptoms: Negative except as documented in HPI. ENMT symptoms: Negative except as documented in HPI. Respiratory symptoms: Negative except as documented in HPI. Cardiovascular symptoms: Negative except as documented in HPI. Gastrointestinal symptoms: Negative except as documented in HPI. Genitourinary symptoms: Negative except as documented in HPI. Musculoskeletal symptoms: Negative except as documented in HPI. Neurologic symptoms: Negative except as documented in HPI. Psychiatric symptoms: Negative except as documented in HPI. Endocrine symptoms: Negative except as documented in HPI. PFSH ED 2 PFSH: Medical History Hypertension Insomnia No pertinent family history Surgical History No pertinent past surgical history Social History Smoking and tobacco/nicotine status: tobacco/nicotine user, details unknown Alcohol intake: current Alcohol intake frequency: few times a month Physical Exam 2 Narrative: EXAM NARRATIVE: General: Alert, no acute distress. Skin: Warm, dry. Head: Normocephalic, atraumatic. Neck: Supple, trachea midline. Eye: Extraocular movements are intact. Ears, nose, mouth and throat: mucosa moist. Cardiovascular: Regular, Normal peripheral perfusion. Respiratory: Lungs are clear to auscultation, respirations are non-labored, breath sounds are equal, Symmetrical chest wall expansion. Gastrointestinal: Soft, Nontender, Non distended Musculoskeletal: Normal ROM, no deformity. Neurological: Alert and oriented, No focal neurological deficit observed. Psychiatric: Cooperative, appropriate mood & affect. Course 2 Vital Signs: Vital signs: Vital Signs Temperature 98.2 F 10/13/24 17:58 Pulse Rate 73 10/13/24 18:31 Respiratory Rate 18 10/13/24 17:58 Blood Pressure 128/89 10/13/24 18:31 Pulse Oximetry 96 10/13/24 18:31 Oxygen Delivery Me thod Room Air 10/13/24 17:58 MDM - Chest Pain Medical Decision Making Differential diagnosis for patient with chest pain includes but is not limited to and based on the above HPI, review of systems and physical exam: Pneumonia. unstable angina. angina. Acute coronary syndrome / MA. Pulmonary embolism. Costochondritis / musculoskeletal. Pleurisy. Pericarditis. Esophageal spasm. Pancreatis. Cholecystitis. Orders placed to evaluate differential diagnosis based on the above differential, HPI and physical exam EKG: Time 1748. Rate 68 normal sinus rhythm, No ST-T changes, no ectopy, normal [place] & QRS intervals, This was reviewed and interpreted by myself the ER physician at 1751 Chest x-ray: No acute process. No infiltrate. No pneumothorax. Films were interpreted by myself the emergency room provider and pending final radiology review. Lab Review: Laboratory results were reviewed and interpreted by myself the emergency room physician. No leukocytosis. No anemia. No renal failure. Troponin is negative. Lipase is negative. I reviewed the patient's medical record. Reexamination: Patient remained stable. No increased work of breathing. No altered mental status. No focal motor deficits. Patient was given a GI cocktail. I suspect this is GI in nature as it hurts worse when he eats or drinks. Place him on Carafate and omeprazole for a few days. Assessment and plan: Noncardiac chest pain ?GI cocktail the emergency room. - Discharged home - Discussed plan with patient. Answered any questions. - Evaluation and treatment of this problem were appropriate in the emergency setting. Lab Data 10/13/24 18:10 10/13/24 18:10 Laboratory Results WBC 8.99 10^3/uL (3.29-11.43) 10/13/24 18:10 RBC 4.99 10^6/uL (3.85-5.65) 10/13/24 18:10 Hgb 14.40 g/dL (11.27-16.99) 10/13/24 18:10 Hct 41.5 % (37-53) 10/13/24 18:10 MCV 83.2 fl (82-101) 10/13/24 18:10 MCH 28.9 pg (27-33) 10/13/24 18:10 MCHC 34.7 g/dL (30-55) 10/13/24 18:10 RDW 12.3 % (12.1-15.1) 10/13/24 18:10 Plt Count 209 10^3/cmm (157-399) 10/13/24 18:10 MPV 11.2 fL (7.4-10.4) H 10/13/24 18:10 Neut % (Auto) 57.9 % 10/13/24 18:10 Lymph % (Auto) 30.0 % 10/13/24 18:10 [place] % (Auto) 6.3 % 10/13/24 18:10 Eos % (Auto) 4.6 % 10/13/24 18:10 Baso % (Auto) 1.0 % 10/13/24 18:10 Neut # (Auto) 5.20 10^3/uL (1.8-7.7) 10/13/24 18:10 Lymph # (Auto) 2.7 10^3/uL (0.8-4.8) 10/13/24 18:10 [place] # (Auto) 0.6 10^3/uL (0.2-0.9) 10/13/24 18:10 Eos # (Auto) 0.4 10^3/uL (0.0-0.8) 10/13/24 18:10 Baso # (Auto) 0.1 10^3/uL (0.0-0.1) 10/13/24 18:10 Nucleated RBC % (auto) 0 % 10/13/24 18:10 Nucleated RBCs # 0.0 /100WBC 10/13/24 18:10 Sodium 140 mmol/L (136-145) 10/13/24 18:10 Potassium 3.8 mmol/L (3.5-5.1) 10/13/24 18:10 Chloride 103 mmol/L (98-107) 10/13/24 18:10 Carbon Dioxide 24 mmol/L (22-29) 10/13/24 18:10 Anion Gap 16.8 (5-19) 10/13/24 18:10 BUN 17 mg/dL (6-20) 10/13/24 18:10 Creatinine 0.9 mg/dL (0.7-1.2) 10/13/24 18:10 GFR Calculation 93.9 mL/min (90-130) 10/13/24 18:10 Glucose 94 mg/dL (65-115) 10/13/24 18:10 Calculated Osmolality 291 mOsm/kg (285-295) 10/13/24 18:10 Calcium 9.0 mg/dL (8.5-10.5) 10/13/24 18:10 Total Bilirubin 0.2 mg/dL (0.15-1.2) 10/13/24 18:10 AST 18 U/L (0-40) 10/13/24 18:10 ALT 19 U/L (0-41) 10/13/24 18:10 Alkaline Phosphatase 61 U/L (40-130) 10/13/24 18:10 Troponin T Baseline < 6 ng/L (0-15) 10/13/24 18:10 Total Protein 6.6 g/dL (6.6-8.7) 10/13/24 18:10 Albumin 4.3 g/dL (3.5-5.2) 10/13/24 18:10 Globulin 2.3 g/dL (1.3-4.6) 10/13/24 18:10 Lipase 33 U/L (13-60) 10/13/24 18:10 XR interpretation done by ED provider, pending radiology final review Discharge Plan Discharge Patient Disposition: Home Clinical Impression: Non-cardiac chest pain Condition: Stable Prescriptions: New sucralfate [Carafate] 1 gram tablet 1 g PO TID 28 Days Qty: 84 0RF Rx Instructions: with meals omeprazole 40 mg capsule,delayed release(DR/EC) 40 mg PO DAILY Qty: 30 0RF No Action oseltamivir [Tamiflu] 75 mg capsule 75 mg PO BID 5 Days Qty: 10 0RF albuterol sulfate 90 mcg/actuation HFA aerosol inhaler 2 puff inhalation Q6H PRN (Reason: shortness of breath or wheezing) Qty: 8.5 0RF ujisaeevsapisqm-xctrcqfbl-EA [Bromfed DM] 2-30-10 mg/5 mL syrup 7.5 ml PO Q6H PRN (Reason: cold symptoms) Qty: 160 0RF ondansetron 4 mg tablet,disintegrating 4 mg PO Q6H PRN (Reason: nausea and vomiting) Qty: 12 0RF Rx Instructions: 340b please hydrochlorothiazide 25 mg tablet 25 mg PO DAILY Qty: 30 11RF (DME) left velcro wrist brace See Rx Instructions .Route .MEDSUPPLY Qty: 1 0RF Rx Instructions: As directed Discharge Orders: Discharge ED (Routine); Ordered 10/13/24 Ordered By: Mayuri Grimm Referrals: Wade Solis MD [Primary Care Provider] - Discharge Diet: Usual diet Discharge Activity: Increase activity as tolerated Patient Instructions: Noncardiac Chest Pain (ED), Opioid Safety, Pain Management Activity Restrictions/Additional Instructions: Thank you for choosing [facility] for your healthcare needs today. Please realize this is an emergency room and that we are providing you with a medical screening exam and this may not be complete and all inclusive of all the testing and or work up that you may need to determine your ailment or severity of your illness. You have been screened and evaluated and felt safe for discharge. Health conditions do change or evolve sometimes and as such it is important that you follow up with your Primary Doctor to be re checked, 3-5 days is a general good time frame for follow up. 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
[2024-10-13 18:31] VITALS: BP 128/89; PULSE 73; O2SAT 96
[2024-10-13 18:43] LABS: Troponin(5th) Baseline < 6 ng/L (0-15)
[2024-10-13 18:44] LABS: Basophils # 0.1 10^3/uL (0.0-0.1); Eosinophils # 0.4 10^3/uL (0.0-0.8); Eosinophils % 4.6 %; Hematocrit 41.5 % (37-53); Lymphocytes # 2.7 10^3/uL (0.8-4.8); Mean Corpuscular HGB Conc 34.7 g/dL (30-55); Mean Corpuscular Hemoglobin 28.9 pg (27-33); Mean Corpuscular Volume 83.2 fl (82-101); Mean Platelet Volume 11.2 fL (7.4-10.4); Monocytes # 0.6 10^3/uL (0.2-0.9); Monocytes % 6.3 %; Neutrophils % 57.9 %; Nucleated Red Blood Cells % 0 %; Platelet Count 209 10^3/cmm (157-399); Red Blood Count 4.99 10^6/uL (3.85-5.65); Red Cell Distribution Width 12.3 % (12.1-15.1); White Blood Count 8.99 10^3/uL (3.29-11.43)
[2024-10-13 18:45] LABS: Alanine Aminotransferase 19 U/L (0-41); Albumin Level 4.3 g/dL (3.5-5.2); Alkaline Phosphatase 61 U/L (40-130); Anion Gap 16.8 (5-19); Aspartate Amino Transferase 18 U/L (0-40); Blood Urea Nitrogen 17 mg/dL (6-20); Carbon Dioxide 24 mmol/L (22-29); Chloride 103 mmol/L (98-107); Globulin 2.3 g/dL (1.3-4.6); Glomerular Filtration Rate 93.9 mL/min (90-130); Glucose 94 mg/dL (65-115); Lipase 33 U/L (13-60); Osmolality Calculated 291 mOsm/kg (285-295); Potassium 3.8 mmol/L (3.5-5.1); Sodium 140 mmol/L (136-145); Total Bilirubin 0.2 mg/dL (0.15-1.2); Total Protein 6.6 g/dL (6.6-8.7)
[2024-10-13] MEDS: lidocaine 2% viscous 15 ML, aluminum-mag hydrox-simethicon 30 ML, sucralfate oral liq 1 GM PO (18:52)
[2024-10-13 19:23] VITALS: BP 145/94; PULSE 65; O2SAT 97
[2024-10-13 19:24] VITALS: BP 145/94; PULSE 74; RESP 17; O2SAT 96
== END 2024-10-13 19:25 | disposition home or self-care (01) ==
PROVIDERS: Emergency Provider Emergency Medicine; PCP Family Medicine
DX: R07.89 Other chest pain (principal); I10 Essential (primary) hypertension
CPT/HCPCS: 71045; 80053; 83690; 84484; 85025; 93005; 99285; J9999